=== PATIENT | male | born 1985 | race African-American/Black ===

== ENCOUNTER 2024-11-05 15:32 | Emergency (ER) | payer MEDICAID, OTHER ==
[~2024-11-05] VITALS: Ht 182.9 cm; Wt 158.0 kg
[2024-11-05 15:37] VITALS: O2SAT 99
[2024-11-05 16:57] VITALS: BP 157/100; PULSE 74; RESP 18; TEMP 98.3; O2SAT 99
== END 2024-11-05 23:41 | disposition home or self-care (01) ==
LOC: ER 15:32
DX: Z00.00 Encounter for general adult medical examination without abnormal findings (principal); F12.90 Cannabis use, unspecified, uncomplicated; V89.2XXA Person injured in unspecified motor-vehicle accident, traffic, initial encounter; Y93.89 Activity, other specified; Y92.89 Other specified places as the place of occurrence of the external cause; Y99.8 Other external cause status
CPT/HCPCS: 99281

== ENCOUNTER 2025-08-20 01:02 | Emergency (ER) | payer OTHER, MEDICAID ==
[~2025-08-20] VITALS: Ht 182.9 cm; Wt 159.0 kg
[2025-08-20 01:06] VITALS: O2SAT 96
[2025-08-20 01:44] LABS: HEMATOCRIT. 40.4 % (42.0-52.0); HEMOGLOBIN. 13.5 g/dL (14.0-18.0); RED BLOOD CELL COUNT 4.48 mill/uL (4.7-6.1)
[2025-08-20 01:45] LABS: BASOPHILS % 0.4 % (0.0-2.0); EOSINOPHILS % 0.6 % (0.0-5.0); LYMPHOCYTES % 23.1 % (20.0-50.0); MEAN PLATELET VOLUME 8.8 fl (7.4-10.4); MONOCYTES % 9.5 % (2.0-8.0); NEUTROPHILS % 66.4 % (40.0-76.0); PLATELET 246 x1000/uL (130-400); RED CELL DISTRIBUTION WIDTH 13.7 % (11.6-14.6)
[2025-08-20 01:56] LABS: CREATININE 1.1 mg/dL (0.6-1.3); UREA NITROGEN BLOOD 12 mg/dL (9-23)
[2025-08-20 01:57] LABS: TROPONIN I HIGH SENSITIVITY 14 ng/L (3.0-53)
[2025-08-20 01:58] LABS: ASPARTATE AMINOTRANSFERASE 41 IU/L (<34); BILIRUBIN DIRECT 0.2 mg/dL (<=3.0); BILIRUBIN TOTAL 0.7 mg/dL (0.1-1.0)
[2025-08-20 01:59] LABS: PROTEIN TOTAL 6.8 g/dL (6.0-8.3)
[2025-08-20] MEDS: TETANUS, DIPHTHERIA, PERTUSSIS VAC/PF 0.5ML (>10YR OLD) IM ONE (02:30)
[2025-08-20] MEDS: ACETAMINOPHEN 325MG TABLET PO ONE (02:30)
[2025-08-20] MEDS: LIDOCAINE HCL 1% 20ML VIAL INFIL ONE (03:20)
[2025-08-20] MEDS: BACITRACIN ZINC OINT UDPKT TOP ONE (05:02)
[2025-08-20 06:45] VITALS: BP 154/109; PULSE 86; RESP 14; TEMP 36.9; O2SAT 98
== END 2025-08-20 06:55 | disposition home or self-care (01) ==
LOC: ER 01:02
DX: S01.81XA Laceration without foreign body of other part of head, initial encounter (principal); F10.129 Alcohol abuse with intoxication, unspecified; V89.2XXA Person injured in unspecified motor-vehicle accident, traffic, initial encounter; Y93.89 Activity, other specified; Y92.410 Unspecified street and highway as the place of occurrence of the external cause; Y99.8 Other external cause status; Y90.9 Presence of alcohol in blood, level not specified
CPT/HCPCS: 80076; 80048; 80320; 85025; 84484; 36415; 71045; 70450; 93005; 12013; 99285; J2003; Z7610 ×2; A6449; 90715; G0480

== ENCOUNTER 2025-08-24 17:02 | Emergency (ER) | payer OTHER, MEDICAID ==
[~2025-08-24] VITALS: Ht 190.5 cm; Wt 133.0 kg
[2025-08-24 17:30] VITALS: O2SAT 100
[2025-08-24 17:35] VITALS: BP 198/126; PULSE 97; RESP 18; TEMP 36.8; O2SAT 100
== END 2025-08-24 17:36 | disposition home or self-care (01) ==
LOC: ER 17:02
DX: S01.81XD Laceration without foreign body of other part of head, subsequent encounter (principal); I10 Essential (primary) hypertension; X58.XXXD Exposure to other specified factors, subsequent encounter
CPT/HCPCS: 99282; Z7610; 99285